=== PATIENT | female | born 1945 | race Native Hawaiian/Other Pacific Islander ===

== ENCOUNTER 2016-10-28 10:15 | Outpatient (CLI) | payer OTHER ==
[~2016-10-28 10:15] MED LIST: AMLO2.5T PO; BAYER ASA325 M1 PO; LEVO0.0218 PO; LIPITOR80 MG PO; TRAM50TA PO; TRIA37.541 PO; VENLAFAXINE75 M2 PO; VICTOZA18 MG/3 ML SC
[2016-10-28 10:53] LABS: PLATELET COUNT 172 K/uL (152-353)
[2016-10-28 11:23] LABS: POTASSIUM 3.8 mmol/L (3.6-5.2)
== END 2016-10-28 19:13 | disposition home or self-care (01) ==
LOC: US 10:15
PROVIDERS: Internal Medicine
DX: R11.2 Nausea with vomiting, unspecified (principal); E11.9 Type 2 diabetes mellitus without complications; R63.4 Abnormal weight loss; R30.0 Dysuria
CPT/HCPCS: 36415; 80053; 80061; 81000; 82043; 82150; 82570; 83036; 83690; 84439; 84443; 85027; 87088

== ENCOUNTER 2016-10-29 10:18 | Outpatient (CLI) | payer OTHER | END 2016-10-29 19:28 | disposition home or self-care (01) | LOC: LABW 10:18 | DX: R74.8 Abnormal levels of other serum enzymes (principal); R11.2 Nausea with vomiting, unspecified; R76.0 Raised antibody titer | CPT/HCPCS: 36415; 80074; 82105; 83516; 86039; 86316 ==

== ENCOUNTER 2016-11-24 12:33 | Outpatient (CLI) | payer OTHER | END 2016-11-24 19:14 | disposition home or self-care (01) | LOC: LABW 12:33 | DX: R74.8 Abnormal levels of other serum enzymes (principal); R94.6 Abnormal results of thyroid function studies; Z86.79 Personal history of other diseases of the circulatory system | CPT/HCPCS: 36415; 80076; 82103; 82104; 82728; 82784; 82785; 83516; 83540; 83550; 84443; 85610; 86039; 86376; 86706; 86708 ==

== ENCOUNTER 2016-12-13 10:47 | Outpatient (CLI) | payer OTHER | END 2016-12-13 11:47 | disposition home or self-care (01) | LOC: LABW 10:47 | DX: R74.8 Abnormal levels of other serum enzymes (principal) | CPT/HCPCS: 36415; 80076 ==

== ENCOUNTER 2017-02-08 09:18 | Outpatient (CLI) | payer OTHER | END 2017-02-08 19:29 | disposition home or self-care (01) | LOC: LABW 09:18 | DX: E03.8 Other specified hypothyroidism (principal) | CPT/HCPCS: 36415; 84439; 84443 ==

== ENCOUNTER 2017-03-29 12:02 | Outpatient (CLI) | payer OTHER ==
[2017-03-29 12:48] LABS: PLATELET COUNT 217 K/uL (152-353)
[2017-03-29 12:51] LABS: POTASSIUM 4.6 mmol/L (3.6-5.2)
== END 2017-03-29 19:36 | disposition home or self-care (01) ==
LOC: LABW 12:02
PROVIDERS: Internal Medicine Gastroenterology
DX: R74.8 Abnormal levels of other serum enzymes (principal); R94.5 Abnormal results of liver function studies; R63.4 Abnormal weight loss; R11.2 Nausea with vomiting, unspecified
CPT/HCPCS: 36415; 80053; 83516; 84080; 85027; 86039

== ENCOUNTER 2017-04-12 11:49 | Outpatient (CLI) | payer OTHER ==
[2017-04-12 12:20] LABS: PLATELET COUNT 184 K/uL (152-353)
[2017-04-12 12:31] LABS: POTASSIUM 5.4 mmol/L (3.6-5.2)
== END 2017-04-12 19:08 | disposition home or self-care (01) ==
LOC: LABW 11:49
PROVIDERS: Internal Medicine
DX: E11.9 Type 2 diabetes mellitus without complications (principal); E03.8 Other specified hypothyroidism
CPT/HCPCS: 36415; 80053; 80061; 81000; 82043; 82570; 83036; 84439; 84443; 85027

== ENCOUNTER 2017-06-09 09:05 | Outpatient (CLI) | payer OTHER ==
[2017-06-09 09:32] LABS: PLATELET COUNT 213 K/uL (152-353)
[2017-06-09 10:05] LABS: POTASSIUM 4.7 mmol/L (3.6-5.2)
== END 2017-06-09 10:05 | disposition home or self-care (01) ==
LOC: LABW 09:05
PROVIDERS: Internal Medicine Gastroenterology
DX: R74.8 Abnormal levels of other serum enzymes (principal); R94.5 Abnormal results of liver function studies; R11.2 Nausea with vomiting, unspecified
CPT/HCPCS: 36415; 80053; 83516; 84080; 85027; 86039

== ENCOUNTER 2017-06-21 16:08 | Outpatient (CLI) | payer OTHER | END 2017-06-21 19:05 | disposition home or self-care (01) | LOC: LAB 16:08 | DX: R30.0 Dysuria (principal) | CPT/HCPCS: 87077; 87086; 87088; 87186 ==

== ENCOUNTER 2017-09-20 10:32 | Outpatient (CLI) | payer OTHER ==
[2017-09-20 11:19] LABS: PLATELET COUNT 219 K/uL (152-353)
== END 2017-09-20 19:07 | disposition home or self-care (01) ==
LOC: LABW 10:32
PROVIDERS: Internal Medicine Gastroenterology
DX: R94.5 Abnormal results of liver function studies (principal); R11.2 Nausea with vomiting, unspecified; R63.4 Abnormal weight loss
CPT/HCPCS: 36415; 80053; 85027

== ENCOUNTER 2018-01-04 15:53 | Outpatient (CLI) | payer OTHER | END 2018-01-04 21:51 | disposition home or self-care (01) | LOC: LAB 15:53 | DX: R10.84 Generalized abdominal pain (principal) | CPT/HCPCS: 81000 ==

== ENCOUNTER 2018-01-11 11:10 | Outpatient (CLI) | payer OTHER ==
[2018-01-11 11:28] LABS: PLATELET COUNT 242 K/uL (152-353)
== END 2018-01-11 21:40 | disposition home or self-care (01) ==
LOC: LAB 11:10 → CT 11:10
PROVIDERS: Internal Medicine
DX: R10.84 Generalized abdominal pain (principal)
CPT/HCPCS: 36415; 80053; 82150; 83690; 85027

== ENCOUNTER 2018-06-03 10:49 | Outpatient (CLI) | payer OTHER ==
[2018-06-03 11:11] LABS: PLATELET COUNT 238 K/uL (152-353)
[2018-06-03 11:31] LABS: POTASSIUM 4.6 mmol/L (3.6-5.2)
== END 2018-06-03 19:56 | disposition home or self-care (01) ==
LOC: LABW 10:49
PROVIDERS: Internal Medicine
DX: R10.11 Right upper quadrant pain (principal)
CPT/HCPCS: 36415; 80053; 81000; 82150; 83690; 85027

== ENCOUNTER 2018-06-13 09:36 | Outpatient (CLI) | payer OTHER | END 2018-06-13 23:02 | disposition home or self-care (01) | LOC: US 09:36 | DX: R05 Cough (principal); R10.11 Right upper quadrant pain ==

== ENCOUNTER 2018-06-23 13:07 | Outpatient (CLI) | payer OTHER | END 2018-06-23 19:26 | disposition home or self-care (01) | LOC: US 13:07 | DX: R10.11 Right upper quadrant pain (principal) ==

== ENCOUNTER 2018-07-04 10:35 | Outpatient (CLI) | payer OTHER | END 2018-07-04 21:23 | disposition home or self-care (01) | LOC: LAB 10:35 | DX: N39.0 Urinary tract infection, site not specified (principal) | CPT/HCPCS: 87086; 87088 ==

== ENCOUNTER 2018-07-18 11:49 | Outpatient (CLI) | payer OTHER | END 2018-07-18 22:19 | disposition home or self-care (01) | LOC: RAD 11:49 | DX: M25.569 Pain in unspecified knee (principal) ==

== ENCOUNTER 2018-11-09 14:02 | Emergency (ER) | payer OTHER ==
[~2018-11-09] VITALS: Ht 160 cm; Wt 93.0 kg
[2018-11-09 14:05] VITALS: BP 129/75; TEMP 97.3
== END 2018-11-09 16:32 | disposition home or self-care (01) ==
LOC: ED 14:02
DX: S32.2XXA Fracture of coccyx, initial encounter for closed fracture (principal); W18.39XA Other fall on same level, initial encounter; Y92.89 Other specified places as the place of occurrence of the external cause
CPT/HCPCS: 99283

== ENCOUNTER 2019-05-29 13:39 | Outpatient (CLI) | payer OTHER | END 2019-05-29 23:19 | disposition home or self-care (01) | LOC: RAD 13:39 | DX: J40 Bronchitis, not specified as acute or chronic (principal) ==

== ENCOUNTER 2020-01-17 11:43 | Outpatient (CLI) | payer OTHER | END 2020-01-17 20:09 | disposition home or self-care (01) | LOC: LAB 11:43 | DX: N39.0 Urinary tract infection, site not specified (principal) | CPT/HCPCS: 81002; 87088 ==

== ENCOUNTER 2020-01-22 12:54 | Outpatient (CLI) | payer OTHER ==
[2020-01-22 13:39] LABS: PLATELET COUNT 240 K/uL (152-353)
[2020-01-22 14:00] LABS: POTASSIUM 5.3 mmol/L (3.6-5.2)
== END 2020-01-22 22:28 | disposition home or self-care (01) ==
LOC: LABW 12:54
PROVIDERS: Internal Medicine
DX: I12.9 Hypertensive chronic kidney disease with stage 1 through stage 4 chronic kidney disease, or unspecified chronic kidney disease (principal); N18.3 Chronic kidney disease, stage 3 (moderate); R53.82 Chronic fatigue, unspecified; E53.8 Deficiency of other specified B group vitamins
CPT/HCPCS: 36415; 80053; 81000; 82024; 82088; 82306; 82330; 82533; 82570; 82607; 82746; 83735; 83835; 83970; 84100; 84155; 84244; 84436; 84443; 85027; 85651; 86038; 86430

== ENCOUNTER 2020-01-24 13:48 | Outpatient (CLI) | payer OTHER | END 2020-01-24 19:04 | disposition home or self-care (01) | LOC: LAB 13:48 | DX: I12.9 Hypertensive chronic kidney disease with stage 1 through stage 4 chronic kidney disease, or unspecified chronic kidney disease (principal); N18.3 Chronic kidney disease, stage 3 (moderate); R53.82 Chronic fatigue, unspecified; E53.8 Deficiency of other specified B group vitamins | CPT/HCPCS: 82330 ==

== ENCOUNTER 2020-03-26 10:44 | Outpatient (CLI) | payer OTHER ==
[2020-03-26 12:52] LABS: PLATELET COUNT 201 K/uL (152-353)
[2020-03-26 17:10] LABS: POTASSIUM 4.5 mmol/L (3.6-5.2)
== END 2020-03-26 20:25 | disposition home or self-care (01) ==
LOC: LABW 10:44
PROVIDERS: Internal Medicine
DX: E03.8 Other specified hypothyroidism (principal); E11.9 Type 2 diabetes mellitus without complications
CPT/HCPCS: 36415; 80053; 80061; 81000; 84439; 84443; 85027

== ENCOUNTER 2020-05-05 14:45 | Outpatient (CLI) | payer OTHER ==
[2020-05-05 15:31] LABS: PLATELET COUNT 321 K/uL (152-353)
== END 2020-05-05 19:25 | disposition home or self-care (01) ==
LOC: LABW 14:45
PROVIDERS: Internal Medicine
DX: Z79.01 Long term (current) use of anticoagulants (principal)
CPT/HCPCS: 36415; 85027

== ENCOUNTER 2020-05-20 10:33 | Outpatient (CLI) | payer OTHER ==
[2020-05-20 10:55] LABS: PLATELET COUNT 229 K/uL (152-353)
== END 2020-05-20 19:21 | disposition home or self-care (01) ==
LOC: LABW 10:33
PROVIDERS: Internal Medicine
DX: J40 Bronchitis, not specified as acute or chronic (principal); N18.4 Chronic kidney disease, stage 4 (severe)
CPT/HCPCS: 36415; 80053; 83735; 85027

== ENCOUNTER 2020-05-24 10:30 | Outpatient (CLI) | payer OTHER ==
[2020-05-24 10:55] LABS: PLATELET COUNT 280 K/uL (152-353)
[2020-05-24 11:04] LABS: POTASSIUM 4.2 mmol/L (3.6-5.2)
== END 2020-05-24 18:38 | disposition home or self-care (01) ==
LOC: LABW 10:30
PROVIDERS: Internal Medicine
DX: N18.3 Chronic kidney disease, stage 3 (moderate) (principal)
CPT/HCPCS: 36415; 80053; 81000; 82043; 82570; 83735; 84100; 84155; 85027

== ENCOUNTER 2020-06-10 13:30 | Outpatient (CLI) | payer OTHER | END 2020-06-10 19:38 | disposition home or self-care (01) | LOC: RAD 13:30 | DX: R05 Cough (principal) ==

== ENCOUNTER 2020-08-06 10:07 | Outpatient (CLI) | payer OTHER | END 2020-08-06 23:58 | disposition home or self-care (01) | LOC: RESP 10:07 | PROVIDERS: ATTEND Internal Medicine Sleep Medicine | DX: R06.02 Shortness of breath (principal) ==

== ENCOUNTER 2020-08-11 11:20 | Outpatient (CLI) | payer OTHER ==
[2020-08-11 11:57] LABS: PLATELET COUNT 263 K/uL (152-353)
[2020-08-11 12:28] LABS: POTASSIUM 3.9 mmol/L (3.6-5.2)
== END 2020-08-11 22:10 | disposition home or self-care (01) ==
LOC: LABW 11:20
PROVIDERS: ATTEND Nurse Practitioner
DX: I12.9 Hypertensive chronic kidney disease with stage 1 through stage 4 chronic kidney disease, or unspecified chronic kidney disease (principal); N18.30 Chronic kidney disease, stage 3 unspecified; E53.8 Deficiency of other specified B group vitamins
CPT/HCPCS: 36415; 80053; 81000; 82306; 82330; 82570; 82607; 83735; 83970; 84100; 84155; 84436; 84443; 85027

== ENCOUNTER 2020-09-04 10:00 | Outpatient (CLI) | payer OTHER | END 2020-09-04 19:17 | disposition home or self-care (01) | LOC: LAB 10:00 | PROVIDERS: ATTEND Internal Medicine | DX: Z20.828 Contact with and (suspected) exposure to other viral communicable diseases (principal) | CPT/HCPCS: 87635; G2023; U0003 ==

== ENCOUNTER 2020-10-06 13:03 | Outpatient (CLI) | payer OTHER ==
[2020-10-06 14:23] LABS: POTASSIUM 4.1 mmol/L (3.6-5.2)
== END 2020-10-06 20:51 | disposition home or self-care (01) ==
LOC: LABW 13:03
PROVIDERS: ATTEND Internal Medicine Endocrinology, Diabetes & Metabolism
DX: E11.29 Type 2 diabetes mellitus with other diabetic kidney complication (principal); E11.65 Type 2 diabetes mellitus with hyperglycemia; E03.8 Other specified hypothyroidism
CPT/HCPCS: 36415; 80053; 83036; 84436; 84443; 84481

== ENCOUNTER 2021-02-13 08:15 | Outpatient (CLI) | payer OTHER ==
[2021-02-13 09:15] LABS: POTASSIUM 4.3 mmol/L (3.6-5.2)
== END 2021-02-13 19:53 | disposition home or self-care (01) ==
LOC: NM 08:15
PROVIDERS: ATTEND Internal Medicine
DX: K82.8 Other specified diseases of gallbladder (principal); E11.29 Type 2 diabetes mellitus with other diabetic kidney complication; E11.65 Type 2 diabetes mellitus with hyperglycemia; E03.8 Other specified hypothyroidism
CPT/HCPCS: 36415; 80053; 84439; 84443; 84480; A9537

== ENCOUNTER 2021-02-18 10:06 | Outpatient (CLI) | payer OTHER ==
[2021-02-18 10:53] LABS: POTASSIUM 4.4 mmol/L (3.6-5.2)
[2021-02-18 10:56] LABS: PLATELET COUNT 369 K/uL (152-353)
== END 2021-02-18 23:02 | disposition home or self-care (01) ==
LOC: LABW 10:06
PROVIDERS: ATTEND Internal Medicine
DX: I12.9 Hypertensive chronic kidney disease with stage 1 through stage 4 chronic kidney disease, or unspecified chronic kidney disease (principal); N18.32 Chronic kidney disease, stage 3b; E53.8 Deficiency of other specified B group vitamins
CPT/HCPCS: 36415; 80053; 81000; 82306; 82330; 82570; 82607; 82746; 83735; 83970; 84100; 84155; 84436; 84443; 85027

== ENCOUNTER 2021-02-23 15:57 | Outpatient (CLI) | payer OTHER | END 2021-02-23 20:08 | disposition home or self-care (01) | LOC: RAD 15:57 → LAB 15:57 → RAD 20:08 | PROVIDERS: ATTEND Internal Medicine | DX: M54.5 Low back pain (principal); R82.998 Other abnormal findings in urine | CPT/HCPCS: 81000; 87088 ==

== ENCOUNTER 2021-03-05 11:02 | Outpatient (CLI) | payer OTHER | END 2021-03-05 19:00 | disposition home or self-care (01) | LOC: MRI 11:02 | PROVIDERS: ATTEND Orthopaedic Surgery | DX: M54.5 Low back pain (principal); M51.37 Other intervertebral disc degeneration, lumbosacral region; S32.000A Wedge compression fracture of unspecified lumbar vertebra, initial encounter for closed fracture ==

== ENCOUNTER 2021-03-31 12:40 | Emergency (ER) | payer OTHER ==
[~2021-03-31] VITALS: Ht 160 cm; Wt 93.0 kg
[2021-03-31 12:51] VITALS: TEMP 97.8
[2021-03-31 13:36] LABS: PLATELET COUNT 224 K/uL (152-353)
[2021-03-31 13:44] LABS: SODIUM 136 mmol/L (136-145)
[2021-03-31 16:40] VITALS: BP 138/67
== END 2021-03-31 16:40 | disposition home or self-care (01) ==
LOC: ED 12:40
PROVIDERS: Family Medicine
DX: N39.0 Urinary tract infection, site not specified (principal); Z20.822 Contact with and (suspected) exposure to COVID-19
CPT/HCPCS: 80053; 82550; 84484; 85027; 87502; 87635; 87651; 93005; 96372; 99283; J0696; U0003

== ENCOUNTER 2021-04-02 09:16 | Outpatient (CLI) | payer OTHER | END 2021-04-02 21:02 | disposition home or self-care (01) | LOC: RAD 09:16 | PROVIDERS: ATTEND Internal Medicine | DX: R05 Cough (principal) ==

== ENCOUNTER 2021-04-21 13:44 | Outpatient (CLI) | payer OTHER | END 2021-04-21 19:28 | disposition home or self-care (01) | LOC: MRI 13:44 | PROVIDERS: ATTEND Orthopaedic Surgery | DX: M75.41 Impingement syndrome of right shoulder (principal); M19.011 Primary osteoarthritis, right shoulder; M75.51 Bursitis of right shoulder; M75.101 Unspecified rotator cuff tear or rupture of right shoulder, not specified as traumatic ==

== ENCOUNTER 2021-04-28 09:55 | Outpatient (CLI) | payer OTHER | END 2021-04-28 21:21 | disposition home or self-care (01) | LOC: NM 09:55 | PROVIDERS: ATTEND Internal Medicine | DX: M89.8X8 Other specified disorders of bone, other site (principal); M54.2 Cervicalgia | CPT/HCPCS: A9561 ==

== ENCOUNTER 2021-05-15 15:01 | Outpatient (CLI) | payer OTHER | END 2021-05-15 20:18 | disposition home or self-care (01) | LOC: MRI 15:01 | PROVIDERS: ATTEND Neurological Surgery | DX: M25.521 Pain in right elbow (principal) ==

== ENCOUNTER 2021-06-16 11:31 | Outpatient (CLI) | payer OTHER ==
[2021-06-16 12:01] LABS: PLATELET COUNT 266 K/uL (152-353)
[2021-06-16 12:49] LABS: POTASSIUM 4.1 mmol/L (3.6-5.2)
== END 2021-06-16 19:27 | disposition home or self-care (01) ==
LOC: LABW 11:31
PROVIDERS: ATTEND Nurse Practitioner
DX: N18.32 Chronic kidney disease, stage 3b (principal)
CPT/HCPCS: 36415; 80053; 81000; 82306; 82330; 82570; 83735; 83970; 84100; 84155; 85027

== ENCOUNTER 2021-08-20 14:33 | Emergency (ER) | payer OTHER ==
[~2021-08-20] VITALS: Ht 160 cm; Wt 93.0 kg
[2021-08-20 14:39] VITALS: TEMP 97.5
[2021-08-20 15:17] LABS: PLATELET COUNT 312 K/uL (152-353)
[2021-08-20 15:24] LABS: POTASSIUM 3.5 mmol/L (3.6-5.2)
[2021-08-20 16:08] LABS: PARTIAL THROMBOPLASTIN TIME 29.6 SECONDS (24.5-33.6)
[2021-08-20 16:38] VITALS: BP 122/60
== END 2021-08-20 16:40 | disposition home or self-care (01) ==
LOC: ED 14:33
PROVIDERS: Hospitalist
DX: S42.294A Other nondisplaced fracture of upper end of right humerus, initial encounter for closed fracture (principal); R51.9 Headache, unspecified; W01.0XXA Fall on same level from slipping, tripping and stumbling without subsequent striking against object, initial encounter; Y92.89 Other specified places as the place of occurrence of the external cause
CPT/HCPCS: 80048; 80320; 85027; 85610; 85730; 96374; 96375; 99284; J1170; J1885; J2270; J2405

== ENCOUNTER 2021-08-25 16:29 | Inpatient (IN) | payer OTHER ==
[~2021-08-25] VITALS: Ht 160 cm; Wt 96.7 kg
[~2021-08-25 16:29] MED LIST changes: -AMLO2.5T PO; +AMLODIPINE BESYLATE PO; -LEVO0.0218 PO; +LEVO0.117 PO
[2021-08-25 23:15] VITALS: BP 160/75; TEMP 99.2; BMI 35.2
[2021-08-26 00:19] VITALS: BP 160/75; TEMP 99.2
[2021-08-26 08:00] VITALS: BP 126/62; TEMP 97.9
[2021-08-26] MEDS ORDERED: LYRICA25 MG PO (09:32)
[2021-08-26] MEDS ORDERED: ALPR0.2566 PO (09:33)
[2021-08-26] MEDS ORDERED: FLONASE AL50 MCG/ACT NAS (09:34)
[2021-08-26] MEDS ORDERED: KP FOLIC ACID1 MG PO (09:35)
[2021-08-26] MEDS ORDERED: COZAAR100 MG PO (09:36)
[2021-08-26] MEDS ORDERED: TRESIBA100 UNIT/M SC (09:36)
[2021-08-26] MEDS ORDERED: OMEPRAZOLE40 MG PO (09:37)
[2021-08-26] MEDS ORDERED: ALBUTEROL0.083 % INH (09:38)
[2021-08-26] MEDS ORDERED: CALCIUM600 M1 PO (09:39)
[2021-08-26] MEDS ORDERED: ALL DAY ALLG10 MG PO (09:40)
[2021-08-26] MEDS ORDERED: VITAMIN D31000 UNIT PO (09:41)
[2021-08-26] MEDS ORDERED: DICLOFENAC SODIUM1 % TOP (09:42)
[2021-08-26] MEDS ORDERED: LEVO0.117 PO (09:45)
[2021-08-26] MEDS ORDERED: MULT VITAMI1 PO (09:47)
[2021-08-26 19:00] VITALS: BP 142/65; TEMP 98.9
[2021-08-26 20:00] VITALS: BP 142/65; TEMP 98.9
[2021-08-27 08:00] VITALS: BP 109/51; TEMP 98.2
[2021-08-27 20:00] VITALS: BP 142/55; TEMP 98
[2021-08-28 05:18] LABS: PLATELET COUNT 215 K/uL (152-353)
[2021-08-28 05:26] LABS: POTASSIUM 4.1 mmol/L (3.6-5.2)
[2021-08-28 08:00] VITALS: BP 152/69; TEMP 98.4
[2021-08-28 20:00] VITALS: BP 130/87; TEMP 98.2
[2021-08-29 08:00] VITALS: BP 132/61; TEMP 98.8
[2021-08-29 19:48] VITALS: BP 112/53; TEMP 98.5
[2021-08-30 08:00] VITALS: BP 130/67; TEMP 98.3
[2021-08-30 20:00] VITALS: BP 132/73; TEMP 98.2
[2021-08-31 08:00] VITALS: BP 139/68; TEMP 98.3
[2021-08-31 20:00] VITALS: BP 162/62; TEMP 98.9
[2021-09-01 08:00] VITALS: BP 138/56; TEMP 98.6
[2021-09-01 20:00] VITALS: BP 157/70; TEMP 98.8
[2021-09-02 08:00] VITALS: BP 160/70; TEMP 97.9
[2021-09-02 19:54] VITALS: BP 140/59; TEMP 97.4
[2021-09-03 08:00] VITALS: BP 104/59; TEMP 97.8
[2021-09-03 20:18] VITALS: BP 128/64; TEMP 98.4
[2021-09-04 08:00] VITALS: BP 145/75; TEMP 98.4
[2021-09-04 20:00] VITALS: BP 133/58; TEMP 98.4
[2021-09-05 08:00] VITALS: BP 157/65; TEMP 97.9
[2021-09-05 20:00] VITALS: BP 148/56; TEMP 98.8
[2021-09-06 08:00] VITALS: BP 140/71; TEMP 98.8
[2021-09-06 20:00] VITALS: BP 120/58; TEMP 98
[2021-09-07 08:00] VITALS: BP 153/65; TEMP 97.9
[2021-09-07 18:36] VITALS: BP 149/96; TEMP 98.2; Ht 160 cm; Wt 96.7 kg
[2021-09-07 20:00] VITALS: BP 159/68; TEMP 98.2
[2021-09-08 08:00] VITALS: BP 126/79; TEMP 99.4
== END 2021-09-08 13:15 | disposition home or self-care (01) | DRG 690 ==
LOC: SWING 16:29 → MED/SURG 19:47
PROVIDERS: ADMIT Internal Medicine; ATTEND Internal Medicine
DX: N39.0 Urinary tract infection, site not specified (principal); S42.201D Unspecified fracture of upper end of right humerus, subsequent encounter for fracture with routine healing; Z91.81 History of falling; D64.9 Anemia, unspecified; E11.9 Type 2 diabetes mellitus without complications; I69.354 Hemiplegia and hemiparesis following cerebral infarction affecting left non-dominant side; R26.2 Difficulty in walking, not elsewhere classified; R27.8 Other lack of coordination; R48.8 Other symbolic dysfunctions; I12.9 Hypertensive chronic kidney disease with stage 1 through stage 4 chronic kidney disease, or unspecified chronic kidney disease; F41.8 Other specified anxiety disorders; G93.89 Other specified disorders of brain; K21.9 Gastro-esophageal reflux disease without esophagitis; R53.81 Other malaise; F32.9 Major depressive disorder, single episode, unspecified; F41.9 Anxiety disorder, unspecified; M79.7 Fibromyalgia; N18.30 Chronic kidney disease, stage 3 unspecified; E03.9 Hypothyroidism, unspecified
CPT/HCPCS: 36415; 80048; 81000; 85027; 87081; 87086; 87088

== ENCOUNTER 2021-10-02 13:13 | Outpatient (CLI) | payer OTHER ==
[~2021-10-02 13:13] MED LIST changes: +ALBUTEROL0.083 % INH; +ALL DAY ALLG10 MG PO; +ALPR0.2566 PO; +CALCIUM600 M1 PO; +COZAAR100 MG PO; +DICLOFENAC SODIUM1 % TOP; +FLONASE AL50 MCG/ACT NAS; +KP FOLIC ACID1 MG PO; +LYRICA25 MG PO; +MULT VITAMI1 PO; +OMEPRAZOLE40 MG PO; +TRESIBA100 UNIT/M SC; +VITAMIN D31000 UNIT PO
== END 2021-10-02 20:36 | disposition home or self-care (01) ==
LOC: LAB 13:13
PROVIDERS: ATTEND Internal Medicine
DX: N39.0 Urinary tract infection, site not specified (principal)
CPT/HCPCS: 87077; 87086; 87088; 87186

== ENCOUNTER 2021-10-19 12:27 | Outpatient (CLI) | payer OTHER ==
[2021-10-19 12:44] LABS: PLATELET COUNT 380 K/uL (152-353)
== END 2021-10-19 19:01 | disposition home or self-care (01) ==
LOC: LABW 12:27
PROVIDERS: ATTEND Internal Medicine
DX: N18.32 Chronic kidney disease, stage 3b (principal)
CPT/HCPCS: 36415; 80053; 82306; 82330; 83735; 83970; 84100; 85027

== ENCOUNTER 2021-12-16 14:03 | Outpatient (CLI) | payer OTHER | END 2021-12-16 19:12 | disposition home or self-care (01) | LOC: MRI 14:03 | PROVIDERS: ATTEND Orthopaedic Surgery | DX: M54.59 Other low back pain (principal); M51.37 Other intervertebral disc degeneration, lumbosacral region; W19.XXXA Unspecified fall, initial encounter; Q78.2 Osteopetrosis; M53.3 Sacrococcygeal disorders, not elsewhere classified ==

== ENCOUNTER 2022-01-04 13:41 | Outpatient (CLI) | payer OTHER | END 2022-01-04 21:22 | disposition home or self-care (01) | LOC: MRI 13:41 | PROVIDERS: ATTEND Orthopaedic Surgery Orthopaedic Surgery of the Spine | DX: M80.08XA Age-related osteoporosis with current pathological fracture, vertebra(e), initial encounter for fracture (principal); M46.05 Spinal enthesopathy, thoracolumbar region; M47.895 Other spondylosis, thoracolumbar region ==

== ENCOUNTER 2022-03-16 13:02 | Outpatient (CLI) | payer OTHER ==
[2022-03-16 13:22] LABS: PLATELET COUNT 284 K/uL (152-353)
[2022-03-16 13:34] LABS: POTASSIUM 4.4 mmol/L (3.6-5.2)
== END 2022-03-16 18:55 | disposition home or self-care (01) ==
LOC: LABW 13:02
PROVIDERS: ATTEND Internal Medicine
DX: N18.32 Chronic kidney disease, stage 3b (principal)
CPT/HCPCS: 36415; 80053; 82306; 82330; 83735; 83970; 84100; 85027

== ENCOUNTER 2022-03-17 11:22 | Outpatient (CLI) | payer OTHER | END 2022-03-17 19:03 | disposition home or self-care (01) | LOC: LAB 11:22 | PROVIDERS: ATTEND Internal Medicine | DX: N18.32 Chronic kidney disease, stage 3b (principal) | CPT/HCPCS: 81002; 82570; 84156 ==

== ENCOUNTER 2022-09-22 10:53 | Outpatient (CLI) | payer OTHER ==
[2022-09-22 11:38] LABS: PLATELET COUNT 236 K/uL (152-353)
[2022-09-22 11:56] LABS: POTASSIUM 4.2 mmol/L (3.6-5.2)
== END 2022-09-22 19:33 | disposition home or self-care (01) ==
LOC: LABW 10:53
PROVIDERS: ATTEND Internal Medicine
DX: N18.32 Chronic kidney disease, stage 3b (principal); R82.998 Other abnormal findings in urine
CPT/HCPCS: 36415; 80053; 81000; 82043; 82306; 82330; 82570; 83735; 83970; 84100; 84156; 85027; 87077; 87086; 87088; 87185; 87186

== ENCOUNTER 2022-10-06 11:23 | Outpatient (CLI) | payer OTHER | END 2022-10-06 19:55 | disposition home or self-care (01) | LOC: LABW 11:23 | PROVIDERS: ATTEND Internal Medicine | DX: N39.0 Urinary tract infection, site not specified (principal); E11.9 Type 2 diabetes mellitus without complications | CPT/HCPCS: 36415; 80061; 83036; 84439; 84443 ==

== ENCOUNTER 2022-11-25 15:50 | Outpatient (CLI) | payer OTHER | END 2022-11-25 19:39 | disposition home or self-care (01) | LOC: LAB 15:50 | PROVIDERS: ATTEND Internal Medicine | DX: N39.0 Urinary tract infection, site not specified (principal) | CPT/HCPCS: 87077; 87086; 87088; 87186 ==

== ENCOUNTER 2022-12-07 15:29 | Outpatient (CLI) | payer OTHER ==
[2022-12-07 15:58] LABS: POTASSIUM 3.9 mmol/L (3.6-5.2)
[2022-12-07 15:59] LABS: PLATELET COUNT 358 K/uL (152-353)
== END 2022-12-07 19:23 | disposition home or self-care (01) ==
LOC: LABW 15:29
PROVIDERS: ATTEND Physical Medicine & Rehabilitation Pain Medicine
DX: Z01.818 Encounter for other preprocedural examination (principal); Z79.1 Long term (current) use of non-steroidal anti-inflammatories (NSAID)
CPT/HCPCS: 36415; 80048; 85027; 85610

== ENCOUNTER 2023-01-11 09:26 | Outpatient (CLI) | payer OTHER ==
[2023-01-11 09:46] LABS: PLATELET COUNT 219 K/uL (152-353)
[2023-01-11 10:09] LABS: POTASSIUM 4.3 mmol/L (3.6-5.2)
== END 2023-01-11 19:20 | disposition home or self-care (01) ==
LOC: LABW 09:26
PROVIDERS: ATTEND Physical Medicine & Rehabilitation Pain Medicine
DX: Z01.818 Encounter for other preprocedural examination (principal); G89.4 Chronic pain syndrome; Z79.1 Long term (current) use of non-steroidal anti-inflammatories (NSAID); E03.8 Other specified hypothyroidism; E11.65 Type 2 diabetes mellitus with hyperglycemia; Z79.01 Long term (current) use of anticoagulants
CPT/HCPCS: 36415; 80053; 83036; 84439; 84443; 84480; 85027; 85610; 87070

== ENCOUNTER 2023-01-22 12:48 | Outpatient (CLI) | payer OTHER ==
[2023-01-22 13:09] LABS: PLATELET COUNT 298 K/uL (152-353)
[2023-01-22 13:21] LABS: POTASSIUM 4.2 mmol/L (3.6-5.2)
== END 2023-01-22 19:58 ==
LOC: LABW 12:48
PROVIDERS: ATTEND Internal Medicine
DX: N18.32 Chronic kidney disease, stage 3b (principal)
CPT/HCPCS: 36415; 80053; 82306; 83735; 83970; 84100; 85027

== ENCOUNTER 2023-01-24 08:37 | Outpatient (CLI) | payer OTHER | END 2023-01-24 20:08 | disposition home or self-care (01) | LOC: LAB 08:37 | PROVIDERS: ATTEND Internal Medicine | DX: N18.32 Chronic kidney disease, stage 3b (principal) | CPT/HCPCS: 36415; 81002; 82043; 82330; 82570; 84156 ==

== ENCOUNTER 2023-06-15 09:48 | Outpatient (CLI) | payer OTHER ==
[2023-06-15 10:16] LABS: PLATELET COUNT 267 K/uL (152-353)
[2023-06-15 10:25] LABS: POTASSIUM 4.3 mmol/L (3.6-5.2)
== END 2023-06-15 19:22 | disposition home or self-care (01) ==
LOC: LABW 09:48
PROVIDERS: ATTEND Nurse Practitioner
DX: N18.32 Chronic kidney disease, stage 3b (principal)
CPT/HCPCS: 36415; 80053; 82306; 82330; 83735; 83970; 84100; 85027

== ENCOUNTER 2023-06-17 18:32 | Outpatient (CLI) | payer OTHER | END 2023-06-17 19:04 | disposition home or self-care (01) | LOC: LAB 18:32 | PROVIDERS: ATTEND Internal Medicine | DX: N18.32 Chronic kidney disease, stage 3b (principal) | CPT/HCPCS: 82043; 82570; 84156 ==